=== PATIENT | male | born 1960 | race Caucasian/White ===

== ENCOUNTER 2017-02-27 08:01 | Day surgery (SDC) | payer OTHER ==
[~2017-02-27 08:01] MED LIST: BACTRIM DS 8001 TAB PO; CEPHALEXIN500 MG PO; LEVOTHYROXIN0.175 MG PO; NASONEX0.05 MG/AC; NORCO 325 MG-51 TAB PO
--- NOTE | 2017-02-27 09:35 | Operative Note ---
Colonoscopy (Jessie) Procedure date: 02/27/17 Date of : 58 Procedure:Colonoscopy Colonoscopy with cold snare polypectomy Indications: Mr. Gonzales is a 56-year-old gentleman with abnormal weight loss of 15-20 pounds over the last year. He does state that his appetite is good. He attributes this to his long work hours of 60-70 hours per week. 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 He does not require home oxygen. The patient reports no abdominal pain, melena, indigestion, reflux or dyspepsia. He has no dysphagia, nausea or anorexia. He reports no rectal bleeding, change in bowel habits or family history of colon cancer. His father had colon polyps. This is his first colonoscopy. Performing Provider: Abhijit Roman MD Referrring Provider: Conrad Truong M.D. Sedation: Fentanyl 200 mg IV/Versed 9 mg IV Procedure: Prior to the procedure, a history and physical exam was performed, and patient medications and allergies were reviewed. The risks and benefits of the procedure and the sedation options and risks were discussed with the patient. All questions were answered and informed consent was obtained. Patient identification and proposed procedure were verified by the physician and the nurse. The patient was placed in a left lateral decubitus position. Throughout the procedure, the patient's blood pressure, pulse, and oxygen saturations were monitored continuously. Findings: On digital rectal examination there was normal rectal tone. There were no external hemorrhoids. The prostate was 2+, smooth, soft, symmetric without nodules. The colonoscope was introduced through the anal canal to the rectum and advanced to the cecum. The ileocecal valve and appendiceal orifice were identified. The scope was advanced a short distance into the ileum which appeared grossly normal. The scope was then withdrawn into the colon. There were 3 colon polyps identified in the cecum 1, ascending 1 and descending 1. These ranged in size from 3-6 mm and were all removed via cold snare polypectomy. There were scattered diverticuli throughout the descending and sigmoid colon ( LEFT colon). The rectum itself was normal. Upon retroflexion within the rectum there were grade 1 internal hemorrhoids. Impressions: 1. Diminutive colonic polyps 3 2. Left-sided diverticulosis 3. Grade 1 internal hemorrhoids Recommendations: I will follow up the polyp pathology and recommend repeat colonoscopy again in 5 years based upon the polyp histology. I would encourage fiber supplementation on a long-term daily maintenance basis. There was no source for the patient's abnormal weight loss. I would consider upper endoscopy and further evaluation. I do not feel that this represents pulmonary cachexia because he is not oxygen requiring. This most likely has multifactorial etiology for weight loss. Complications: None EBL (ml): 0 at 0912
[2017-02-27 17:00] VITALS: BP 104/67
== END 2017-02-27 10:30 | disposition home or self-care (01) ==
LOC: SDC 08:01
PROVIDERS: Internal Medicine Gastroenterology
PROC: 0DBM8ZZ Excision of Descending Colon, Via Natural or Artificial Opening Endoscopic (ICD-10-PCS; 2017-02-27)
PROC: 0DBH8ZZ Excision of Cecum, Via Natural or Artificial Opening Endoscopic (ICD-10-PCS; 2017-02-27)
PROC: 0DBK8ZZ Excision of Ascending Colon, Via Natural or Artificial Opening Endoscopic (ICD-10-PCS; principal; 2017-02-27 09:00)
DX: R63.4 Abnormal weight loss (principal); K57.30 Diverticulosis of large intestine without perforation or abscess without bleeding; K64.0 First degree hemorrhoids; D12.2 Benign neoplasm of ascending colon; D12.0 Benign neoplasm of cecum; D12.4 Benign neoplasm of descending colon; E34.8 Other specified endocrine disorders; Z83.71 Family history of colonic polyps